=== PATIENT | female | born 1965 | race Caucasian/White ===

== ENCOUNTER 2025-04-13 16:44 | Emergency (ER) | payer OTHER, SELFPAY ==
[2025-04-13 16:49] VITALS: BP 130/102
[2025-04-13 17:17] LABS: Hematocrit 41.0 % (37.0-47.0); Hemoglobin 14.8 g/dL (12.0-16.0); Mean Corp Hgb Conc. 36.1 g/dL (33.0-37.0); Mean Corpuscular Volume 79.9 fL (81.0-99.0); Nucleated Red Blood Cells % 0 %; Platelet Count 338 10^3/uL (130-400); Red Cell Dist. Width 12.0 % (11.5-14.5)
[2025-04-13 17:39] LABS: ALT (SGPT) 34 U/L (0-35); AST (SGOT) 31 U/L (14-36); Albumin 4.5 g/dl (3.5-5.0); Alkaline Phosphatase 81 U/L (38-126); Blood Urea Nitrogen 14 mg/dl (7-17); Calcium 10.0 mg/dl (8.4-10.2); Carbon Dioxide 20 mmol/L (22-30); Chloride 109 mmol/L (98-107); Glucose 108 mg/dl (70-99); Potassium 4.2 mmol/L (3.5-5.1); Sodium 135 mmol/L (135-145); Total Protein 7.1 g/dl (6.3-8.2); eGFR > 60.00
[2025-04-13 18:25] VITALS: BMI 30.1
[2025-04-13 18:29] VITALS: BP 123/102
[2025-04-13 18:31] VITALS: BP 123/102
[2025-04-13 19:00] VITALS: BP 127/89
--- NOTE | 2025-04-13 19:12 | ED.GENMED ---
History of Present Illness
General
Chief Complaint: Headache
Time Seen by Provider: 04/13/25 19:11
History of Present Illness
History of Present Illness:
TIME OF INITIAL EVALUATION
- 7:15 PM
REVIEW OF OLD RECORDS
- History of SVT, diverticular disease.. I reviewed records, the patient was seen in the emergency department in March 22 related to SVT.
CHIEF COMPLAINT(S)
Headaches and dizziness.
HISTORY OF PRESENT ILLNESS
The patient is a 59-year-old female with a history of atrial fibrillation who presented with headaches and dizziness. The patient reports that these symptoms have been persistent over the past three months. She describes the headaches as starting in
the morning and often present with accompanying dizziness, particularly when standing. She has a history of being on metoprolol and flecainide, but was advised by her middle school director to stop metoprolol and continue flecainide due to her low blood
pressure, which was noted to be around 105 mmHg. However, the patient experienced worsening symptoms and subsequently switched to propranolol while continuing flecainide. An echocardiogram performed recently showed normal results, as did a computed
tomography (CT) scan of the brain conducted without contrast at [facility] four weeks ago. She denies any associated nausea at this time but mentions experiencing waves of nausea in the past. The patient is concerned about the potential
side effects of her medications on her symptoms and questions whether her current prescription may be contributing to her headaches. She has been using celecoxib at home as an anti-inflammatory.
To clarify, the patient states that she currently takes propranolol and flecainide and no longer takes metoprolol
EXTERNAL RECORDS REVIEWED
The patient reports that an echocardiogram and a CT scan without contrast of the brain were performed at [facility] four weeks ago, both yielding normal results. Additionally, a prior CT scan with contrast of the chest was performed, also
reported to be normal.
CHRONIC MEDICAL CONDITIONS SIGNIFICANTLY AFFECTING CARE
The patient has atrial fibrillation, managed with flecainide and recently with propranolol due to previous issues with blood pressure management on metoprolol.
MEDICATIONS
The patient is currently taking flecainide and propranolol. She previously used metoprolol but was advised to discontinue it. The patient uses celecoxib at home for anti-inflammatory purposes.
PHYSICAL EXAM
General: Alert, no acute distress.
Skin: Warm, dry.
Head: Normocephalic, atraumatic.
Neck: Supple, trachea midline.
Eye, Ears, Nose, Mouth, and Throat: Oral mucosa moist.
Cardiovascular: Normal peripheral perfusion, no edema.
Respiratory: Respirations are non-labored.
Gastrointestinal: Abdomen nondistended.
Back: Normal range of motion, normal alignment.
Musculoskeletal: Normal range of motion, normal strength.
Neurological: Alert and oriented to person, place, time, and situation, no focal neurological deficit observed.
Psychiatric: Cooperative, appropriate mood & affect.
PROBLEM LIST
Acute:
1. Headaches
2. Dizziness
Chronic:
History of SVT
PLAN
1. Continue propranolol as prescribed.
2. Consider trial off flecainide but consult with middle school director before making changes.
3. Opioid medication prescribed as needed for nausea; patient offered a dose during the visit and a prescription for home use.
4. Encourage follow-up with middle school director for medication management and potential further evaluation of headaches.
5. Neurology referral discussed, with the suggestion to consult a local neurologist if symptoms persist, and a specific name was provided.
6. Continue celecoxib for pain management as needed.
DIFFERENTIAL DIAGNOSIS
The Differential Diagnosis includes, in no particular order and is not limited to:
1. Medication side effects (related to flecainide or propranolol)
2. Migraines
3. Tension headaches
4. Vestibular disorders
5. Orthostatic hypotension
6. Cervical spine issues
7. Anxiety-related symptoms
8. Sinusitis
9. Cardiac arrhythmia
10. Neurological disorders
RADIOLOGY
- Considered CT however the patient states she had a normal noncontrast CT just 4 months ago and she has a normal neurologic examination. Of note the patient states that she had a normal recent CTA of the chest as well.
EKG
- Sinus 80, normal axis, nonspecific ST abnormality, QTc 452 ms
LABS
- CBC is normal, bicarb is slightly low at 20, total bili 1.4,
UPDATE
-SUMMARY OF ENCOUNTER
The patient is a 59-year-old female with a history of atrial fibrillation who presented to the emergency department with persistent headaches and dizziness over the last three months. Previous workups, including echocardiogram and CT scan of the
brain, were normal. In the emergency department, it was suspected that her symptoms might be partially due to stress or anxiety. Management included prescribing a short course of ondansetron for symptomatic relief of nausea and advising her to
resume celecoxib for headache management. The patient was encouraged to follow up with her middle school director regarding the ongoing use of flecainide.
DISPOSITION
Discharge.
ASSESSMENT
The patients symptoms of headaches and dizziness might have a stress/anxiety component. Medication management may also play a role, necessitating further evaluation by her middle school director.
PLAN
1. Prescribe a short course of ondansetron for symptomatic relief of nausea.
2. Encourage the patient to follow up with her middle school director for further assessment of her medication regimen, particularly regarding flecainide.
3. Resume taking celecoxib to manage headaches.
PATIENT EDUCATION AND COUNSELING
The patient was advised about potential stress or anxiety contributing to her symptoms and was encouraged to follow up with her middle school director for medication reassessment.
FOLLOW-UP INSTRUCTIONS
The patient should schedule a follow-up appointment with her middle school director to discuss her medication regimen and assessment.
MEDICATION RECONCILIATION
- Prescribed ondansetron for nausea.
- Resume celecoxib for headache management.
MEDICAL DECISION MAKING
Number and Complexity of Problems Addressed: Chronic conditions affecting care include atrial fibrillation. Differential diagnosis includes medication side effects, migraines, tension headaches, vestibular disorders, orthostatic hypotension,
cervical spine issues, anxiety-related symptoms, sinusitis, cardiac arrhythmia, and neurological disorders.
Data:
Category 1: According to the patient, the patient reports having studies at [facility] in which she states showed normal echocardiogram and CT scan results.
Category 3: Encouragement for the patient to follow up with a middle school director for the medication assessment was discussed.
Risk: Prescription medication was prescribed, including ondansetron for nausea, and recommendations to resume celecoxib.
DIAGNOSIS
Headache
Nausea
Dizziness
Past History
Past History
ED Past Medical History: Arrthythmia (SVT), Other (Anemia) and Other (diverticulitis)
ED Past Surgical History: Orthopedic and Other (sigmoid resection 11/2017)
Social History
Tobacco: Non-smoker
Alcohol: Occasional
Drug: None
Living: alone
Employment: Employed
Phy Exam
Physical Exam
Physical Exam:
See HPI
Course
Orders/Labs/Results
Orders:
Orders
04/13/25 16:46
Electrocardiogram (*1) Urgent
Reason for Study: Chest Pain
EKG- Treatment ONCE
04/13/25 16:53
Troponin I Urgent
04/13/25 17:05
Complete Blood Count/With Diff Urgent
Comprehensive Metabolic Panel Urgent
04/13/25 18:40
Troponin I Urgent
04/13/25 19:25
Ondansetron Orally Disint [Zofran Odt (Orally Disintegrating)] 4 mg PO NOW STA
Abnormal Lab Results
04/13/25
17:05
MCV 79.9 L fL
(81.0-99.0)
Absolute Neuts (auto) 6.9 H 10^3/uL
(1.4-6.5)
Absolute Monos (auto) 1.0 H 10^3/uL
(0.1-0.6)
Lymphocytes % 16.6 L %
(20.5-51.1)
Monocytes % 9.6 H %
(1.7-9.3)
Chloride 109 H mmol/L
(98-107)
Carbon Dioxide 20 L mmol/L
(22-30)
Glucose 108 H mg/dl
(70-99)
Total Bilirubin 1.4 H mg/dl
(0.2-1.3)
04/13/25 17:05
04/13/25 17:05
Vital Signs
Initial and Last Documented VS:
Initial Vital Signs
Temp Pulse Resp BP Pulse Ox
36.9 C 87 16 130/102 98
04/13/25 16:49 04/13/25 16:49 04/13/25 16:49 04/13/25 16:49 04/13/25 16:49
Last Documented Vital Signs
Temp Pulse Resp BP Pulse Ox
36.9 C 78 18 127/89 96
04/13/25 16:49 04/13/25 19:00 04/13/25 18:31 04/13/25 19:00 04/13/25 19:12
*Pulse Oximetry
SaO2: 96
Oxygen Mode of Delivery: Room air
Patient hypoxic: no
*Critical Care Note
Total Time (30-74mins, 75-104mins- exclusive of procedures): Not Applicable
ED Attending Note
-
Portions of this chart may have been created with voice recognition software.� Occasional wrong word or��sound alike� substitutions may have occurred due to the inherent limitations of voice recognition software.
Discharge Plan
Departure
Patient Disposition: Home (Routine Discharge)
Date of Disposition: 04/13/25
Time of Disposition: 19:23
Patient with high blood pressure during this ER visit?: Yes
Discharge Problem:
Headache
Prescriptions:
New
ondansetron HCl 4 mg tablet
4 mg PO Q8H PRN (Reason: nausea and vomiting) Qty: 10 0RF
No Action
celecoxib 200 MG capsule
200 mg PO BID
metoprolol succinate [Toprol XL] 25 MG tablet extended release 24 hr
25 mg PO BID Qty: 60 0RF
Beualh,huyen,BNickieanimalis 1 EACH capsule
1 ea PO DAILY
[place]
flecainide 50 MG tablet
50 mg PO BID
Referrals:
Camelia Grayson MD [Family Provider]
Activity Restrictions/Additional Instructions:
Basic blood work including cardiac blood work shows no concerning findings. Troponin shows no sign of heart attack. EKG shows a normal sinus rhythm. Propranolol is oftentimes used to treat headaches. Talk to your middle school director about considering
holding the flecainide to see if this helps your headaches. I sent a prescription for Zofran to your pharmacy.
Interventions
Interventions:
*Risk Screen - Suicide Last Done: 04/13/25 16:55
*General Assessment Last Done: 04/13/25 18:25
*Neglect/Abuse Screening Last Done: 04/13/25 16:55
*ED- Fall Risk Assessment Last Done: 04/13/25 18:25
*ED COVID-19 Vaccine History Last Done: 04/13/25 18:25
ED- Neurological Assessment Last Done: 04/13/25 18:26
Discharge Date and Time
Print Language: BULGARIAN
[2025-04-13 19:16] LABS: Troponin I < 0.012 ng/ml
[2025-04-13] MEDS: ZOFRAN ODT (ORALLY DISINTEGRATING) 4 MG PO (19:37)
== END 2025-04-13 19:48 | disposition home or self-care (01) ==
LOC: EMR 16:44
PROVIDERS: EMERGENCY PHYSICIAN Emergency Medicine; FAMILY PHYSICIAN Family Medicine
DX: R51.9 Headache, unspecified (principal); R42 Dizziness and giddiness; I47.10 Supraventricular tachycardia, unspecified; I48.91 Unspecified atrial fibrillation; Z79.899 Other long term (current) drug therapy; Z86.79 Personal history of other diseases of the circulatory system
CPT/HCPCS: 99283; 80053; 84484; 85025; 93005

== ENCOUNTER 2025-05-15 18:28 | Emergency (ER) | payer OTHER, SELFPAY ==
[2025-05-15 18:30] VITALS: BP 155/94
[2025-05-15 18:53] LABS: Hematocrit 43.5 % (37.0-47.0); Hemoglobin 14.7 g/dL (12.0-16.0); Mean Corp Hgb Conc. 33.8 g/dL (33.0-37.0); Mean Corpuscular Volume 81.9 fL (81.0-99.0); Nucleated Red Blood Cells % 0 %; Platelet Count 324 10^3/uL (130-400); Red Cell Dist. Width 12.4 % (11.5-14.5)
[2025-05-15 19:08] LABS: ALT (SGPT) 57 U/L (0-35); AST (SGOT) 50 U/L (14-36); Albumin 4.7 g/dl (3.5-5.0); Alkaline Phosphatase 73 U/L (38-126); Blood Urea Nitrogen 13 mg/dl (7-17); Calcium 10.0 mg/dl (8.4-10.2); Carbon Dioxide 24 mmol/L (22-30); Chloride 105 mmol/L (98-107); Glucose 124 mg/dl (70-99); Potassium 4.4 mmol/L (3.5-5.1); Sodium 137 mmol/L (135-145); Total Protein 7.4 g/dl (6.3-8.2); eGFR > 60.00
[2025-05-15 19:19] LABS: Troponin I < 0.012 ng/ml
--- NOTE | 2025-05-15 23:53 | ED.GENMED ---
History of Present Illness
General
Chief Complaint: Headache
Time Seen by Provider: 05/15/25 22:57
History of Present Illness
History of Present Illness:
59-year-old female with prior history of SVT on flecainide and metoprolol presenting to the emergency department for persistent headaches. Patient reports that she contracted COVID in January and since then has been having headaches and often times
cardiac symptoms. Reports headaches are primarily exertional, and will sometimes get palpitations with a headache and pain in her chest. She has been following with her note keeper. She currently has a Holter monitor in place. She denies any
present chest pain or difficulty breathing. She does note a left-sided headache. Denies injury or trauma. Does report [facility], and she was advised to get an
MRI. She has an MRI scheduled for June. Denies any visual changes. Denies focal weakness or numbness. Denies any difficulty breathing. She has been taking Tylenol and Celebrex, without relief of headache. Denies any significant neck pain
or stiffness. Denies fever. Denies additional acute medical
Past History
Past History
ED Past Medical History: Arrthythmia (SVT), Other (Anemia) and Other (diverticulitis)
ED Past Surgical History: Orthopedic and Other (sigmoid resection 11/2017)
Social History
Tobacco: Non-smoker
Alcohol: Occasional
Drug: None
Living: alone
Employment: Employed
Phy Exam
Physical Exam
Physical Exam:
General: Well-appearing, no clinical signs of dehydration, nontoxic and in no acute distress
HEENT: protecting airway, pupils equal and reactive, extraocular movements intact
Neck: appears supple
CV: Normal heart rate, regular rhythm
Resp: No accessory muscle use, no increased work of breathing, lungs clear to auscultation bilaterally
Abd: No distention
Extremities: No deformities, no swelling, no erythema, pulses and sensation intact
Neuro: alert, no focal neurologic deficit
: deferred
Rectal: deferred
Psych: Normal affect
Skin: Intact
Scores
Heart Score for Chest Pain Patients
STEMI patient?: No
History: Slightly or Non-Suspicious
ECG: Normal
Age: >45 - <65 years
Risk Factors: 1 or 2 Risk Factors
Troponin: </= Normal Limit
Heart Score for Chest Pain Patients: 2
Heart Score Risk: 2.5% MACE over next 6 weeks
Course
Orders/Labs/Results
Orders:
Orders
05/15/25 18:33
EKG [Electrocardiogram (*1)] Urgent
Reason for Study: Chest Pain
EKG- Treatment ONCE
05/15/25 18:48
Complete Blood Count/With Diff Urgent
Comprehensive Metabolic Panel Urgent
Troponin I Urgent
05/15/25 23:35
CT Head W/o Iv Contrast Urgent
Comment:
Reason For Exam: headache for months
Butalb/Acetaminophen/Caffeine [Fioricet] 1 tab PO NOW STA
Abnormal Lab Results
05/15/25
18:48
Absolute Monos (auto) 0.7 H 10^3/uL
(0.1-0.6)
Glucose 124 H mg/dl
(70-99)
Total Bilirubin 1.4 H mg/dl
(0.2-1.3)
AST 50 H U/L
(14-36)
ALT 57 H U/L
(0-35)
05/15/25 18:48
05/15/25 18:48
Vital Signs
Initial and Last Documented VS:
Initial Vital Signs
Temp Pulse Resp BP Pulse Ox
98.5 F 66 18 155/94 66
05/15/25 18:30 05/15/25 18:30 05/15/25 18:30 05/15/25 18:30 05/15/25 18:30
Last Documented Vital Signs
Temp Pulse Resp BP Pulse Ox
98.7 F 55 18 118/75 98
05/15/25 23:57 05/15/25 23:57 05/15/25 23:57 05/15/25 23:57 05/16/25 01:57
MDM/Problems Addressed
MDM/Problems Addressed:
59 yo female with history of SVT presenting to the emergency department for persistent headaches after COVID in January. Vital signs are significant for mild hypertension.
On exam patient is resting comfortably, no acute distress. Does note present headache on the left side. Ultimately suspect migraines. Does note that symptoms started after COVID, so element of 'long COVID 'is a consideration. No present focal
neurologic deficits. Patient afebrile, nontoxic, no meningismus. Without concern for meningitis. Given duration of symptoms, without present suspicion for acute stroke. Patient has concern for cardiac etiology to her symptoms, reports associated
palpitations. She presently has a Holter monitor in place. EKG is sinus rhythm, no ischemia, no arrhythmia. Without present concern for ACS or dangerous arrhythmia. Patient had screening laboratory analysis, unremarkable. Will administer
Fioricet and obtain CT brain given duration of symptoms.
01:40 - CT brain is negative. On reassessment, remained stable. Patient has an MRI scheduled for June. Ultimately feel stable for discharge, advised outpatient neurology follow-up given again duration of symptoms. Return precautions
discussed and patient verbalized understanding
*Pulse Oximetry
SaO2: 66
Oxygen Mode of Delivery: Room air
Patient hypoxic: no
*EKG
Interpreted by ED Provider?: Yes
EKG Intrepretation Date: 05/15/25
EKG Intrepretation Time: 23:55
Interpretation: normal
Heart Rate: 61
Rate: normal
Rhythm: sinus
[place]: normal axis
Interval: normal interval
QRS Pattern: normal QRS
Ischemia: no ischemia
*Critical Care Note
Total Time (30-74mins, 75-104mins- exclusive of procedures): Not Applicable
ED Attending Note
-
Portions of this chart may have been created with voice recognition software.� Occasional wrong word or��sound alike� substitutions may have occurred due to the inherent limitations of voice recognition software.
Discharge Plan
Departure
Patient Disposition: Home (Routine Discharge)
Date of Disposition: 05/16/25
Time of Disposition: 01:44
Patient with high blood pressure during this ER visit?: No
Condition: Good
Discharge Problem:
Migraine
Instructions: Migraines (DC)
Prescriptions:
New
jtxzllrtot-icuaoseacwgzv-epcv [Fioricet] 50-300-40 mg capsule
1 cap PO Q8H PRN (Reason: headache) Qty: 10 0RF
No Action
celecoxib 200 MG capsule
200 mg PO BID
metoprolol succinate [Toprol XL] 25 MG tablet extended release 24 hr
25 mg PO BID Qty: 60 0RF
L.acidoph,paracasei,B.animalis 1 EACH capsule
1 ea PO DAILY
[place]
flecainide 50 MG tablet
50 mg PO BID
ondansetron HCl 4 mg tablet
4 mg PO Q8H PRN (Reason: nausea and vomiting) Qty: 10 0RF
Referrals:
Camelia Grayson MD [Family Provider]
Activity Restrictions/Additional Instructions:
You were seen in the emergency department for headache
You were found to have reassuring vital signs, laboratory analysis, CT imaging of your head and EKG. We recommend that you continue to follow-up with your note keeper
Please follow-up closely with your primary care physician.
Return to the emergency department for any worsening of your symptoms, or any development of chest pain, difficulty breathing, abdominal pain with persistent vomiting and inability to tolerate food or liquid by mouth (concern for dehydration),
weakness, headache or confusion, fever greater than 100.4, or any additional symptoms that are concerning to you.
Thank you for choosing [facility].
Interventions
Interventions:
*Risk Screen - Suicide Last Done: 05/15/25 18:30
*General Assessment Last Done: 05/15/25 18:30
*Neglect/Abuse Screening Last Done: 05/15/25 18:30
*ED- Fall Risk Assessment Last Done: 05/15/25 18:30
*ED COVID-19 Vaccine History Last Done: 05/15/25 18:30
*Nursing Disposition Last Done: 05/16/25 01:57
ED- Neurological Assessment Last Done: 05/16/25 00:00
Discharge Date and Time
Discharge Date/Time: 05/16/25 01:58
Print Language: MALDIVIAN
[2025-05-15 23:55] VITALS: BMI 32.1
[2025-05-15 23:57] VITALS: BP 118/75
[2025-05-16] MEDS: FIORICET 1 TAB PO (00:01)
== END 2025-05-16 01:58 | disposition home or self-care (01) ==
LOC: EMR 18:28
PROVIDERS: Emergency Medicine; EMERGENCY PHYSICIAN Student in an Organized Health Care Education/Training Program; FAMILY PHYSICIAN Family Medicine
DX: G43.909 Migraine, unspecified, not intractable, without status migrainosus (principal); R03.0 Elevated blood-pressure reading, without diagnosis of hypertension; I47.10 Supraventricular tachycardia, unspecified
CPT/HCPCS: 99284; 70450; 80053; 84484; 85025; 93005

== ENCOUNTER → 2025-05-22 15:24 | Outpatient (REF) | payer OTHER, SELFPAY ==
[2025-05-22 16:24] LABS: Blood Urea Nitrogen 14 mg/dl (7-17)
== END ==
LOC: REG 15:24
PROVIDERS: ATTENDING PHYSICIAN Internal Medicine; FAMILY PHYSICIAN Family Medicine
DX: J41.0 Simple chronic bronchitis (principal); R05.3 Chronic cough; R51.9 Headache, unspecified; R42 Dizziness and giddiness; R06.02 Shortness of breath
CPT/HCPCS: 36415; 71275; 82565; 84520; Q9967

== ENCOUNTER 2025-06-01 22:07 | Emergency (ER) | payer OTHER, SELFPAY ==
[2025-06-01 22:10] VITALS: BP 131/104
[2025-06-01 23:50] VITALS: BP 123/109
[2025-06-02] VITALS: BP 145/91
--- NOTE | 2025-06-02 00:50 | ED.GENMED ---
History of Present Illness
<ALESHIA Leon - Last Filed: 06/02/25 02:08>
General
Chief Complaint: Headache
Source: patient and previous hospital records
Exam Limitations: none
Time Seen by Provider: 06/02/25 00:48
Nursing documentation reviewed up to this point in time: agreed with
History of Present Illness
History of Present Illness:
The patient is a 59-year-old female with a history of chronic bronchitis, SVT, headaches, and hypertension who presents to the ED c/o headache and shortness of breath. She reports persistent headache for the past four months. Head CT completed on
05/15/2025 is unremarkable. Patient denies any photophobia, vision changes, nausea or vomiting.
Past History
<ALESHIA Leon - Last Filed: 06/02/25 02:08>
Past History
ED Past Medical History: Arrthythmia (SVT), HTN, Other (Anemia) and Other (diverticulitis)
ED Past Surgical History: Orthopedic and Other (sigmoid resection 11/2017)
Social History
Tobacco: Non-smoker
Alcohol: Occasional
Drug: None
Living: alone
Employment: Employed
Review of Systems
<ALESHIA Leon - Last Filed: 06/02/25 02:08>
Review of Systems
Allergies reviewed?: Yes
All Other Systems: ROS reviewed and negative except as documented in HPI and ROS
Constitutional: Reports no symptoms
EENT: Reports no symptoms
Respiratory: Reports no symptoms
Cardiac: Reports no symptoms
ABD/GI: Reports no symptoms
: Reports no symptoms
Musculoskeletal: Reports no symptoms
Phy Exam
<ALESHIA Leon - Last Filed: 06/02/25 02:08>
General Physical Exam
General Presentation: no apparent distress
General Skin: warm and dry
General Mental: alert
Eye Exam
Eye Exam: PERRL
Cardiovascular Exam
Cardiovascular Exam: no edema and normal peripheral pulses
Pulmonary Exam
Pulmonary Exam: lungs clear and no respiratory distress
Oxygen Status: room air
Gastrointestinal Exam
Gastrointestinal Exam: normal bowel sounds, non tender, soft, non distended and no cva tenderness
Auscultation of Abdomen: normal
Neurological Exam
Neurological Exam: alert and oriented x3
Musculoskeletal Exam
Musculoskeletal Exam: full ROM
Course
<ALESHIA Leon - Last Filed: 06/02/25 02:08>
Orders/Labs/Results
Orders:
Orders
06/02/25 00:53
CMP [Comprehensive Metabolic Panel] Urgent
Complete Blood Count/With Diff Urgent
Abnormal Lab Results
06/02/25
00:53
WBC 12.2 H 10^3/uL
(4.8-10.8)
MCV 80.8 L fL
(81.0-99.0)
Abs Immat Gran (auto) 0.1 H 10^3/uL
(0-0.05)
Absolute Neuts (auto) 8.6 H 10^3/uL
(1.4-6.5)
Absolute Monos (auto) 1.1 H 10^3/uL
(0.1-0.6)
Immature Gran % 0.6 H %
(0-0.5)
Lymphocytes % 19.4 L %
(20.5-51.1)
Calcium 10.5 H mg/dl
(8.4-10.2)
AST 60 H U/L
(14-36)
ALT 127 H U/L
(0-35)
06/02/25 00:53
06/02/25 00:53
Vital Signs
Initial and Last Documented VS:
Initial Vital Signs
Temp Pulse Resp BP Pulse Ox
98.2 F 80 18 131/104 95
06/01/25 22:10 06/01/25 22:10 06/01/25 22:10 06/01/25 22:10 06/01/25 22:10
Last Documented Vital Signs
Temp Pulse Resp BP Pulse Ox
98.2 F 79 15 145/91 99
06/01/25 22:10 06/02/25 01:45 06/02/25 01:45 06/02/25 00:00 06/02/25 01:30
<Sharon Collins DO - Last Filed: 06/02/25 07:03>
Orders/Labs/Results
Orders:
Orders
06/02/25 00:53
CMP [Comprehensive Metabolic Panel] Urgent
Complete Blood Count/With Diff Urgent
Abnormal Lab Results
06/02/25
00:53
WBC 12.2 H 10^3/uL
(4.8-10.8)
MCV 80.8 L fL
(81.0-99.0)
Abs Immat Gran (auto) 0.1 H 10^3/uL
(0-0.05)
Absolute Neuts (auto) 8.6 H 10^3/uL
(1.4-6.5)
Absolute Monos (auto) 1.1 H 10^3/uL
(0.1-0.6)
Immature Gran % 0.6 H %
(0-0.5)
Lymphocytes % 19.4 L %
(20.5-51.1)
Calcium 10.5 H mg/dl
(8.4-10.2)
AST 60 H U/L
(14-36)
ALT 127 H U/L
(0-35)
06/02/25 00:53
06/02/25 00:53
Vital Signs
Initial and Last Documented VS:
Initial Vital Signs
Temp Pulse Resp BP Pulse Ox
98.2 F 80 18 131/104 95
06/01/25 22:10 06/01/25 22:10 06/01/25 22:10 06/01/25 22:10 06/01/25 22:10
Last Documented Vital Signs
Temp Pulse Resp BP Pulse Ox
98.2 F 79 15 145/91 99
06/01/25 22:10 06/02/25 01:45 06/02/25 01:45 06/02/25 00:00 06/02/25 01:30
<ALESHIA Leon - Last Filed: 06/02/25 02:08>
MDM/Problems Addressed
Differential Diagnosis Includes:
Migraine, tension headache, anxiety, cervical spine disorders, sinusitis
MDM/Problems Addressed:
Patient encouraged to follow-up with cardiology, neurology, and pulmonology as needed for management of chronic symptoms.
<ALESHIA Leon - Last Filed: 06/02/25 02:08>
*Pulse Oximetry
SaO2: 97
Oxygen Mode of Delivery: Room air
Patient hypoxic: no
*Critical Care Note
Total Time (30-74mins, 75-104mins- exclusive of procedures): Not Applicable
ED Attending Note
<ALESHIA Leon - Last Filed: 06/02/25 02:08>
-
Portions of this chart may have been created with voice recognition software.� Occasional wrong word or��sound alike� substitutions may have occurred due to the inherent limitations of voice recognition software.
<Sharon Collins DO - Last Filed: 06/02/25 07:03>
ED Attending Note
Patient seen and examined by attending physician: Yes
I performed the substantive portion of visit, reviewed & personally made and approve the management plan that is documented in note by myself or ANTONELLA.: Yes
ED Attending Note:
This is a 59-year-old woman with history of SVT/A-fib who presents with complaints of ongoing chronic headache, shortness of breath that began after COVID URI in January of this year. She has been following regularly with blow down operator, pulmonary as
well as neurologist. She has undergone several unremarkable CTs of the head, and unremarkable MRI of the brain, unremarkable CT of the chest including CT/PE study earlier this week. She also reports unremarkable nuclear stress test earlier this
week. Recently started on a prednisone taper several days ago as well as started Topamax.
She continues with this ongoing headache and dyspnea on exertion and has been overall concerned with ongoing symptoms. She denies fever, no recent fall. No new symptoms. She admits that she has been stressed and anxious regarding these issues.
59-year-old woman appears her stated age, bright and alert, pleasant, easily communicative and in no acute distress.
HEENT: The head is normocephalic, atraumatic. Oral mucosa is moist.
Neck is supple, nontender, no meningismus.
Heart is regular rate and rhythm.
Lungs are clear to auscultation.
Abdomen is soft without appreciable tenderness.
Extremities: No clubbing or cyanosis or edema. Peripheral pulses are full and equal. Nontender.
Neuro: Awake alert and oriented x 3. No focal neurodeficits. Gait is steady.
Chronic daily headache since January. No focal neurodeficits. Unremarkable neuroimaging. At this point no indication for repeat imaging.
Chronic shortness of breath/dyspnea on exertion status post COVID. Could consider long COVID syndrome. Unremarkable CT of the chest/PE study just earlier this week.
Unremarkable nuclear stress test earlier this week. All reassuring.
electronic device monitor shows normal sinus rhythm. No arrhythmia.
Labs show minimally elevated white blood cell count likely related to current prednisone taper which she began 2 days ago. She remains afebrile.
Chemistries show mildly elevated LFTs, similar sporadic elevations noted previously. She continues to have no abdominal pain, no GI symptoms.
Lengthy discussion with the patient that overall findings are all reassuring.
Patient is already following with several specialist and at this point I recommend that we avoid additional medication or treatments in the ED and instead continue to follow with her specialist. I have encouraged her to continue with the prednisone
taper, continue with Topamax and continue to follow with her specialists.
Discharge Plan
Departure
Patient Disposition: Home (Routine Discharge)
Date of Disposition: 06/02/25
Time of Disposition: :43
Patient with high blood pressure during this ER visit?: No
Condition: Good
Discharge Problem:
Chronic daily headache, Chronic dyspnea
Instructions: Migraine in adults, Long COVID
Prescriptions:
No Action
celecoxib 200 MG capsule
200 mg PO BID
metoprolol succinate [Toprol XL] 25 MG tablet extended release 24 hr
25 mg PO BID Qty: 60 0RF
L.acidoph,paracasei,B.animalis 1 EACH capsule
1 ea PO DAILY
[place]
flecainide 50 MG tablet
50 mg PO BID
ondansetron HCl 4 mg tablet
4 mg PO Q8H PRN (Reason: nausea and vomiting) Qty: 10 0RF
[id number]-[id number] [Fioricet] 50-300-40 mg capsule
1 cap PO Q8H PRN (Reason: headache) Qty: 10 0RF
Referrals:
Camelia Grayson MD [Family Provider] - Call in 1-3 days for appt
Activity Restrictions/Additional Instructions:
Continue current medications.
Continue to follow-up with your specialists including neurologist, coating machine operator, blow down operator.
Interventions
Interventions:
*Risk Screen - Suicide Last Done: 06/01/25 22:10
*General Assessment Last Done: 06/02/25 01:53
*Neglect/Abuse Screening Last Done: 06/01/25 22:10
*ED- Fall Risk Assessment Last Done: 06/02/25 01:53
*ED COVID-19 Vaccine History Last Done: 06/02/25 01:53
*Nursing Disposition Last Done: 06/02/25 01:53
ED- Cardiac Assessment Last Done: 06/02/25 00:41
ED- Neurological Assessment Last Done: 06/02/25 00:41
ED- Pulmonary Assessment Last Done: 06/02/25 00:41
Discharge Date and Time
Discharge Date/Time: 06/02/25 01:54
Print Language: BURKINAN
[2025-06-02 01:04] LABS: Hematocrit 43.0 % (37.0-47.0); Hemoglobin 15.1 g/dL (12.0-16.0); Mean Corp Hgb Conc. 35.1 g/dL (33.0-37.0); Mean Corpuscular Volume 80.8 fL (81.0-99.0); Nucleated Red Blood Cells % 0 %; Platelet Count 329 10^3/uL (130-400); Red Cell Dist. Width 12.3 % (11.5-14.5)
[2025-06-02 01:27] LABS: ALT (SGPT) 127 U/L (0-35); AST (SGOT) 60 U/L (14-36); Albumin 4.6 g/dl (3.5-5.0); Alkaline Phosphatase 84 U/L (38-126); Blood Urea Nitrogen 17 mg/dl (7-17); Calcium 10.5 mg/dl (8.4-10.2); Carbon Dioxide 25 mmol/L (22-30); Chloride 105 mmol/L (98-107); Glucose 95 mg/dl (70-99); Potassium 4.3 mmol/L (3.5-5.1); Sodium 138 mmol/L (135-145); Total Protein 7.3 g/dl (6.3-8.2); eGFR > 60.00
== END 2025-06-02 01:54 | disposition home or self-care (01) ==
LOC: EMR 22:07
PROVIDERS: EMERGENCY PHYSICIAN Emergency Medicine; FAMILY PHYSICIAN Family Medicine
DX: R51.9 Headache, unspecified (principal); R06.00 Dyspnea, unspecified; I10 Essential (primary) hypertension; D64.9 Anemia, unspecified; D72.829 Elevated white blood cell count, unspecified; I48.91 Unspecified atrial fibrillation; Z79.52 Long term (current) use of systemic steroids; Z86.16 Personal history of COVID-19; Z86.79 Personal history of other diseases of the circulatory system
CPT/HCPCS: 99283; 80053; 85025

== ENCOUNTER → 2025-06-24 14:39 | Outpatient (REF) | payer OTHER, SELFPAY | LOC: HWRAD 14:39 | PROVIDERS: ATTENDING PHYSICIAN Chiropractor; FAMILY PHYSICIAN Family Medicine; REFERRING PHYSICIAN Orthopaedic Surgery | DX: M54.2 Cervicalgia (principal); M54.6 Pain in thoracic spine | CPT/HCPCS: 72050; 72072 ==